=== PATIENT | female | born 1980 | race African-American/Black ===

== ENCOUNTER 2019-07-12 18:36 | Inpatient (IN) | payer SELFPAY ==
[~2019-07-12] VITALS: Ht 162.6 cm; Wt 81.6 kg
[2019-07-12] MEDS ORDERED: IV NORMAL SALINE 1000 ML BAG IV ONE (19:00)
[2019-07-12] MEDS ORDERED: OXYCODONE/APAP 5-325 MG TABLET PO ONE (19:00)
[2019-07-12] MEDS ORDERED: ONDANSETRON 4 MG/2 ML VIAL IV ONE ×2 (19:00→21:00)
--- NOTE | 2019-07-12 19:00 | NUR ---
Patient ambulated with stable gait. A/Ox4. Patient came for c/o abd pain after getting diagnosed with ovarian cysts. Pain 10/10 general body. Respiratory even and unlabored, no cough no sob. No cardiovascular distress noted, all pulses palpable. Denies any n/v/d Son at bedside accompanying patient.
--- NOTE | 2019-07-12 19:06 | NUR ---
ERMD at bedside
[2019-07-12 19:15] LABS: *BILIRUBIN,URIN NEGATIVE (NEGATIVE); *BLOOD, URINE NEGATIVE (NEGATIVE); *CLARITY,URINE CLEAR (CLEAR); *COLOR,URINE YELLOW (YELLOW); *KETONES,URINE NEGATIVE (NEGATIVE); *URINE HCG, QUAL NEGATIVE (NEGATIVE); *UROBILINOGEN,URINE 0.2 E.U./dl (NORMAL); LEUKOCYTE ESTERASE ,URINE NEGATIVE (NEGATIVE); NITRITE, URINE NEGATIVE (NEGATIVE); UGLUCOSE NEGATIVE (NEGATIVE)
[2019-07-12 19:24] LABS: BASOPHILS # (AUTO) 0.1 K/uL (0.0-8.0); BASOPHILS % (AUTO) 1.5 % (0.0-2.0); EOSINOPHILS # (AUTO) 0.2 K/uL (0.0-0.7); EOSINOPHILS % (AUTO) 4.2 % (0.0-7.0); HEMATOCRIT 34.2 % (31.2-41.9); HEMOGLOBIN 11.3 g/dL (10.9-14.3); LYMPHOCYTES # (AUTO) 2.5 K/uL (20.0-40.0); LYMPHOCYTES % (AUTO) 43.1 % (20.5-51.5); MEAN CORPUSCULAR HEMOGLOBIN 27.1 uug (24.7-32.8); MEAN CORPUSCULAR HGB CONC 33 g/dL (32.3-35.6); MEAN CORPUSCULAR VOLUME 82.2 fL (75.5-95.3); MONOCYTES # (AUTO) 0.7 K/uL (2.0-10.0); MONOCYTES % (AUTO) 12.1 % (0.0-11.0); NEUTROPHILS # (AUTO) 2.3 K/uL (1.8-8.9); NEUTROPHILS % (AUTO) 39.1 % (38.5-71.5); PLATELET COUNT (AUTO) 273 K/uL (179-408); RED BLOOD CELL COUNT(AUTO) 4.16 MIL/uL (3.63-4.92); WHITE BLOOD COUNT (AUTO) 5.9 K/uL (3.8-11.8)
[2019-07-12] MEDS ORDERED: ONDANSETRON 4 MG/2 ML VIAL ONE ×2 (19:26→20:55)
[2019-07-12] MEDS ORDERED: OXYCODONE/APAP 5-325 MG TABLET ONE (19:27)
[2019-07-12 19:30] LABS: CARBON DIOXIDE 24 mmol/L (21-32); CHLORIDE 109 mmol/L (98-107); CREATININE 0.8 mg/dL (0.6-1.3); GLUCOSE 98 mg/dL (74-106); POTASSIUM 3.9 mmol/L (3.5-5.1); UREA NITROGEN, BLOOD 7 mg/dL (7-18)
[2019-07-12 19:34] LABS: ALANINE AMINOTRANSFERASE 19 U/L (14-59); ALKALINE PHOSPHATASE 46 U/L (50-136); ASPARTATE AMINOTRANSFERASE 19 U/L (15-37); BILIRUBIN,DIRECT < 0.1 mg/dL (0.0-0.2); BILIRUBIN,TOTAL 0.2 mg/dL (0.2-1.0); LIPASE 222 U/L (73-393); TOTAL PROTEIN, SERUM 6.7 g/dL (6.4-8.2)
[2019-07-12] MEDS ORDERED: SWABABLE VALVE TRANSFER SET EA MC ONE (19:38)
[2019-07-12] MEDS ORDERED: IOHEXOL 300MG/ML 100 ML INFUS..BTL ONE (19:38)
[2019-07-12] MEDS ORDERED: IV NORMAL SALINE 250 ML IV ONE (19:38)
--- NOTE | 2019-07-12 19:49 | NUR ---
Patient transported down to CT in stable condition.
--- NOTE | 2019-07-12 20:05 | NUR ---
Patient back in room for CT in stable condition.
--- NOTE | 2019-07-12 20:34 | NUR ---
Radiologist on the telephone with ERMD.
--- NOTE | 2019-07-12 20:53 | NUR ---
Called [facility] to page Aldo for panel call, awaiting call back.
[2019-07-12] MEDS ORDERED: HYDROMORPHONE 1 MG/1 ML DISP.SYRIN ONE (20:55)
--- NOTE | 2019-07-12 20:59 | NUR ---
Left message for OB, Dr. Haji, awaiting for call back
[2019-07-12] MEDS ORDERED: HYDROMORPHONE 1 MG/1 ML DISP.SYRIN IV ONE (21:00)
--- NOTE | 2019-07-12 21:00 | NUR ---
TRAMAINE on the phone with Dr. Haji
--- NOTE | 2019-07-12 21:03 | NUR ---
Called [facility] to Shelia flores NP for GI surgery. Awaiting call back.
--- NOTE | 2019-07-12 21:15 | NUR ---
Pino Boles NP at bedside.
--- NOTE | 2019-07-12 21:18 | NUR ---
GAEL contacted to have US read, spoke to Kit.
--- NOTE | 2019-07-12 21:25 | NUR ---
Report given to YUAN Garcia
--- NOTE | 2019-07-12 21:40 | NUR ---
Shelia Wilkerson NP returned call and is on the line with ERMD
[2019-07-12] MEDS ORDERED: ACETAMINOPHEN 325 MG TABLET PO PRN (21:45)
[2019-07-12] MEDS ORDERED: ZOLPIDEM 5 MG TABLET PO PRN (21:45)
[2019-07-12] MEDS ORDERED: ACETAMINOPHEN 650 MG SUPP.RECT RC PRN (21:45)
[2019-07-12] MEDS ORDERED: MAGNESIUM HYDROXIDE 30 ML LIQUID UDC PO PRN (21:45)
[2019-07-12 22:02] VITALS: BP 113/75
[2019-07-12] MEDS ORDERED: PIPERACILLIN/TAZOBACTAM/D5W 100 ML IV ONE (22:31)
--- NOTE | 2019-07-12 22:50 | NUR ---
ADMITTED PATIENT IN MED SURG FLOOR UNDER THE CARE OF MICKY YUNG. PATIENT ALERT ORIENTED, AMBULATORY, CONTINENT, COMPLAIN OF LOWER ABDOMINAL PAIN, CONT ON PAIN MANAGEMENT. CONT TO MONITOR.
[2019-07-12] MEDS: NICOTINE 14 MG/24HR PATCH TD SCH (22:52)
[2019-07-12] MEDS: PIPERACILLIN SODIUM/TAZOBACTAM 3.375 G in IV DEXTROSE 5% 50 ML IV SCH (22:52)
[2019-07-12] MEDS: IV D5W-0.45% NS +20 KCL 1,000 ML IV PRN (22:53)
--- NOTE | 2019-07-12 23:00 | NUR ---
DR WELLS CAME TO SEE THE PATIENT. STATED THAT PATIENT WILL HAVE NO SURGERY AT THIS TIME, AND SHE CAN BE ON A CLEAR LIQUID DIET.
[2019-07-13] MEDS: HYDROMORPHONE 1 MG/1 ML DISP.SYRIN IV PRN ×3 (00:28→06:43)
--- NOTE | 2019-07-13 04:27 | NUR ---
PATIENT SLEEP INTERMITTENTLY, CONT ON PAIN MANAGEMENT OF THE ABDOMEN. PATIENT TOLERATE CLEAR LIQUID DIET AT THIS TIME. PATIENT HAS NO EPISODE OF NAUSEA NOR VOMITING NOTED, CALL LIGHT WITHIN REACH.
[2019-07-13 04:42] VITALS: BP 91/56
[2019-07-13] MEDS: PIPERACILLIN SODIUM/TAZOBACTAM 3.375 G in IV DEXTROSE 5% 50 ML IV SCH (05:37)
[2019-07-13 06:42] LABS: BASOPHILS # (AUTO) 0.1 K/uL (0.0-8.0); BASOPHILS % (AUTO) 1.1 % (0.0-2.0); EOSINOPHILS # (AUTO) 0.3 K/uL (0.0-0.7); EOSINOPHILS % (AUTO) 5.7 % (0.0-7.0); HEMATOCRIT 31.1 % (31.2-41.9); MEAN CORPUSCULAR HEMOGLOBIN 26.5 uug (24.7-32.8); MEAN CORPUSCULAR HGB CONC 32 g/dL (32.3-35.6); MEAN CORPUSCULAR VOLUME 82.5 fL (75.5-95.3); MONOCYTES # (AUTO) 0.5 K/uL (2.0-10.0); MONOCYTES % (AUTO) 9.4 % (0.0-11.0); NEUTROPHILS # (AUTO) 1.8 K/uL (1.8-8.9); NEUTROPHILS % (AUTO) 31.8 % (38.5-71.5); PLATELET COUNT (AUTO) 230 K/uL (179-408); RED BLOOD CELL COUNT(AUTO) 3.77 MIL/uL (3.63-4.92); WHITE BLOOD COUNT (AUTO) 5.8 K/uL (3.8-11.8)
[2019-07-13 07:18] LABS: BILIRUBIN,TOTAL 0.2 mg/dL (0.2-1.0); CREATININE 0.8 mg/dL (0.6-1.3); MAGNESIUM 1.7 mg/dL (1.8-2.4); PHOSPHOROUS 3.7 mg/dL (2.5-4.9); POTASSIUM 3.3 mmol/L (3.5-5.1); TOTAL PROTEIN, SERUM 5.5 g/dL (6.4-8.2)
[2019-07-13] MEDS ORDERED: POTASSIUM CHLORIDE 20 MEQ TAB.PRT.SR PO ONE (08:30)
[2019-07-13] MEDS ORDERED: MAGNESIUM OXIDE 400 MG TABLET PO ONE (08:30)
[2019-07-13] MEDS: NICOTINE 14 MG/24HR PATCH TD SCH (08:33)
[2019-07-13 08:45] LABS: THYROID STIMULATING HORMONE 2.16 mIU/mL (0.358-3.740)
--- NOTE | 2019-07-13 09:00 | NUR ---
RECEIVED IN BED AWAKE ALERT AND ORIENTED MAG LEVEL IS 1.7 AND POTASSIUM IS 3.3 SEEN BY [facility] OUTSOLE SPLICER WITH REPLACEMENT ORDERS AND NOTED.
[2019-07-13] MEDS ORDERED: HYDROMORPHONE 1 MG/1 ML DISP.SYRIN IV PRN (09:30)
[2019-07-13] MEDS: HYDROMORPHONE 2 MG/1 ML DISP.SYRIN IV PRN ×4 (10:15→21:43)
[2019-07-13 11:10] VITALS: BP 104/72
[2019-07-13] MEDS: PIPERACILLIN/TAZOBACTAM/D5W 3.375 G in IV DEXTROSE 5% 50 ML IV SCH ×2 (13:01→21:44)
[2019-07-13] MEDS: IV D5W-0.45% NS +20 KCL 1,000 ML IV PRN (13:12)
--- NOTE | 2019-07-13 14:21 | NUR ---
PATIENT CONTINUE ON PAIN MANAGEMENT AND CLEAR LIQUIDS DIET ORDERED AND HELPFUL AMBULATORY UO AND DOWN HER ROOM NO DISTRESS AT THIS TIME
[2019-07-13 15:12] VITALS: BP 108/66
--- NOTE | 2019-07-13 15:53 | NUR ---
CALL RECEIVED FROM DR WELLS WITH ORDERS FOR REGULAR DIET AND WILL CONTINUE TO FOLLOW PATIENT.
--- NOTE | 2019-07-13 17:30 | NUR ---
CONTINUE ON PAIN MEDICATIONS ORDERED AND HELPFUL TOLERATED REGULAR DIET 75 PERCENT WITH NO NAUSEA VOMITING OR INCREASE IN ABDOMINAL PAIN AT THIS TIME.
--- NOTE | 2019-07-13 18:00 | NUR ---
RECEIVED A CALL FROM THE [facility] THAT PATIENT WAS DOWN STAIRS FIRST FLOOR IN THE PARKING LOT SO SHE WAS ESCORTED BACK TO HER ROOM AND WAS EDUCATED THAT FOR HER SAFETY SHE SHOULD NOT LEAVE THE FLOOR OKAY TO WALK AROUND IN THE HALLWAY AND SHE EXPRESSED UNDERSTANDING.
--- NOTE | 2019-07-13 19:32 | NUR ---
Received patient awake sitting at bedside chair. Patient is alert and oriented x 3 and ambualtory. Patient complaining of pain. Noted leak at IV site on left hand, assess and noted IV partially pulled out, completely removed IV catheter noted with complete tip. Reinserted IV access on the right hand with 22g IV and resumed IV fluids, noted infusing well. Patient was asking for pain medication, patient notified medication is not yet due at this time. Will continue to monitor.
[2019-07-13 19:55] VITALS: BP 107/72
--- NOTE | 2019-07-13 23:00 | NUR ---
Noted patient upset and stating that we are not helping her, stating we are not giving her pain medications when she is in pain. Explained to patient that the pain medication are as needed basis and not scheduled but there is interval in between each injection as ordered by medical provider. Explained to patient that we are giving her all the medications as ordered by medical provider. Patient stating she wishes to speak with the doctor about the plan of care for her whether she is going to have surgery or not. Patient notified that there is only an leguillon debeader provider at this time and we can notify her doctor tomorrow morning to come speak with her to discuss the plan of care.
--- NOTE | 2019-07-13 23:30 | NUR ---
Patient still upset and repeating the same questions which I answered already. Patient verbalizing that she wishes to be discharged. Contacted Jamey Boles who said it will be going home against medical advice if she wishes to leave right now and that if the patient refuses to sign the AMA paperwork to just ler her go if that is what she wants, explained all of this to patient. Patient given time to decide what she wants to do.
--- NOTE | 2019-07-14 00:05 | NUR ---
Patient decided to stay, states she does not feel well and she needs the pain management here in the hospital. Jamey Boles updated on the situation.
[2019-07-14] MEDS: HYDROMORPHONE 2 MG/1 ML DISP.SYRIN IV PRN ×3 (00:40→06:55)
[2019-07-14] MEDS: ONDANSETRON 4 MG/2 ML VIAL IV PRN ×2 (00:40→06:56)
--- NOTE | 2019-07-14 03:50 | NUR ---
Patient was given pain medication IV, and patient is claiming I am giving her a different medication despite showing her the medication vial. Patient stating that I am changing the medication order for her even after explaining that I am giving her medication as ordered by the doctor. Patient states she wishes to speak with the doctor, explained to her that medical provider will be here in the morning and she can discuss all her concerns with the medical provider.
[2019-07-14] MEDS: PIPERACILLIN/TAZOBACTAM/D5W 3.375 G in IV DEXTROSE 5% 50 ML IV SCH (05:52)
--- NOTE | 2019-07-14 07:00 | NUR ---
Patient this morning stating that she gets Zofran and Dilaudid scheduled every 3 hours. Chart review done and noted that Zofran 1st dose was given 0050 last night, patient was never given Zofran the whole day yesterday. Dilaudid was also given on as needed basis the whole day and not as scheduled.Reiterated that medications are being given to her as scheduled and as ordered by the doctor. Patient still upset, informed her that doctor will come this morning and she can discuss her concern with the doctor.
[2019-07-14 07:01] LABS: BASOPHILS # (AUTO) 0.1 K/uL (0.0-8.0); BASOPHILS % (AUTO) 1.4 % (0.0-2.0); EOSINOPHILS # (AUTO) 0.3 K/uL (0.0-0.7); EOSINOPHILS % (AUTO) 7.3 % (0.0-7.0); HEMATOCRIT 31.6 % (31.2-41.9); HEMOGLOBIN 10.2 g/dL (10.9-14.3); LYMPHOCYTES # (AUTO) 2.1 K/uL (20.0-40.0); LYMPHOCYTES % (AUTO) 49.2 % (20.5-51.5); MEAN CORPUSCULAR HEMOGLOBIN 26.6 uug (24.7-32.8); MEAN CORPUSCULAR HGB CONC 32 g/dL (32.3-35.6); MEAN CORPUSCULAR VOLUME 82.6 fL (75.5-95.3); MONOCYTES # (AUTO) 0.6 K/uL (2.0-10.0); MONOCYTES % (AUTO) 12.7 % (0.0-11.0); NEUTROPHILS # (AUTO) 1.3 K/uL (1.8-8.9); NEUTROPHILS % (AUTO) 29.4 % (38.5-71.5); PLATELET COUNT (AUTO) 229 K/uL (179-408); RED BLOOD CELL COUNT(AUTO) 3.82 MIL/uL (3.63-4.92); WHITE BLOOD COUNT (AUTO) 4.3 K/uL (3.8-11.8)
--- NOTE | 2019-07-14 07:10 | NUR ---
RECEIVED PATIENT IN BED AWAKE, ALERT AND ORIENTED, NO C/O PAIN AT THIS TIME, NO S/S OF ACUTE DISTRESS NOTED, PAIN IS COMFORTABLE , PATIENT AMBULATORY, SAFETY AND COMFORT PROVIDED AT ALL TIMES. CALL LIGHT WITHIN REACHED AT ALL TIMES. WILL CONTINUE TO MONITOR.
[2019-07-14 07:26] LABS: MAGNESIUM 2.1 mg/dL (1.8-2.4); POTASSIUM 4.3 mmol/L (3.5-5.1)
[2019-07-14 07:47] LABS: CREATININE 0.8 mg/dL (0.6-1.3)
[2019-07-14] MEDS ORDERED: HYDR-4354 PO (08:27)
[2019-07-14] MEDS: NICOTINE 14 MG/24HR PATCH TD SCH (08:31)
--- NOTE | 2019-07-14 08:55 | NUR ---
RECEIVED DISCHARGE ORDER TO HOME. PATIENT DISCHARGE TO HOME, DISCHARGE INSTRUCTION GIVEN AND PRESCRIBE MEDS WITH MEDICATION EXPLANATIONS PROVIDED. IV AND ID BAND REMOVED. NO C/O PAIN AND NO S/S OF ACUTE DISTRESS NOTED AT THIS TIME. BELONGINGS ACCOUNTED FOR AND SIGNED. QUESTIONS AND CONCERNS ADDRESSED.
== END 2019-07-14 08:55 | disposition home or self-care (01) | DRG 760 ==
LOC: ER 18:38 → MEDSURG3 21:30
PROVIDERS: ADMIT Nurse Practitioner Acute Care; ATTEND Nurse Practitioner Acute Care
DX: N83.202 Unspecified ovarian cyst, left side (principal); E44.1 Mild protein-calorie malnutrition; N83.201 Unspecified ovarian cyst, right side; D25.1 Intramural leiomyoma of uterus; N80.9 Endometriosis, unspecified; G89.4 Chronic pain syndrome; F17.210 Nicotine dependence, cigarettes, uncomplicated; M48.8X9 Other specified spondylopathies, site unspecified
CPT/HCPCS: 36415; 76856; 83690; 83735; 84100; 84443; 84703; 85025; A4663; G0378; J1170; J2405; J2543; J3490; J7030; J7050; J7060; Q9967